=== PATIENT | male | born 1955 | race African-American/Black ===

== ENCOUNTER 2019-12-18 16:16 | Emergency (ER) | payer MEDICARE, MEDICAID ==
[~2019-12-18] VITALS: Ht 172.7 cm; Wt 59.0 kg
[2019-12-18 16:31] VITALS: BP 161/90
== END 2019-12-18 18:20 | disposition home or self-care (01) ==
LOC: ER 17:04
DX: R04.0 Epistaxis (principal); I10 Essential (primary) hypertension; Z85.46 Personal history of malignant neoplasm of prostate; Z98.890 Other specified postprocedural states
CPT/HCPCS: 99281

== ENCOUNTER 2020-02-28 13:53 | Emergency (ER) | payer MEDICARE, MEDICAID ==
[~2020-02-28] VITALS: Ht 172.7 cm; Wt 58.0 kg
[2020-02-28 14:01] VITALS: BP 115/65
[2020-02-28 15:48] LABS: CHLORIDE 109 mEq/L (98-107)
[2020-02-28 15:51] LABS: HEMATOCRIT 35.6 % (42.0-52.0); HEMOGLOBIN 11.9 g/dL (14.0-18.0); MEAN CORPUSCULAR HEMOGLOBIN 30.2 pg (28.0-32.0); MEAN CORPUSCULAR VOLUME 90.5 fL (80.0-94.0); PLATELET 275 x1000/uL (130-400); RED BLOOD CELL COUNT 3.94 mill/uL (4.7-6.1); RED CELL DISTRIBUTION WIDTH 12.9 % (11.6-14.6)
[2020-02-28 15:53] LABS: PARTIAL THROMBOPLASTIN TIME 27.3 sec (23.4-31.0); PROTHROMBIN TIME 10.2 sec (9.6-11.0)
== END 2020-02-28 17:08 | disposition home or self-care (01) ==
LOC: ER 13:56
DX: R04.0 Epistaxis (principal); I10 Essential (primary) hypertension; Z98.890 Other specified postprocedural states; Z85.9 Personal history of malignant neoplasm, unspecified
CPT/HCPCS: 36415; 80048; 85027; 99283